=== PATIENT | female | born 1990 | race Caucasian/White ===

== ENCOUNTER 2024-02-23 05:18 | Inpatient (IN) ==
--- NOTE | 2024-02-06 11:11 | Anesthesiology Consultation ---
Date of Service February 06, 2024 Assessment & Plan (1) Encounter for pre-operative examination: Infectious disease screening: Per assessment on 02/06/24- No known recent infectious disease contacts or current infectious disease symptoms. Chart Review Chart Review: entry level recruiter initiated History Surgery Operation Date: 02/23/24 07:30 Proposed Procedures p Section in LD (Delivery of Baby Through Abdominal Incision) - Antonella Isaac, Height/Weight Height: 5 ft Weight: 77.111 kg Allergies Allergy/AdvReac Type Severity Reaction Status Date / Time No Known Allergies Allergy Verified 02/06/24 10:34 Medications Home Medications Medication Instructions Recorded Confirmed Last Taken Adrenal Complex 2 tab PO DAILY 02/06/24 02/06/24 Unknown Hcl V - Plus 1 tab PO DAILY 02/06/24 02/06/24 Unknown Para-Pack 2 tab PO DAILY 02/06/24 02/06/24 Unknown calcium 100 mg capsule 200 - 400 mg PO HS 02/06/24 02/06/24 Unknown vit no.133-ferrous 1 tab PO DAILY 02/06/24 02/06/24 Unknown fumarate 28 mg-folic acid 800 mcg tablet () Past Medical History Medical History Hypothyroid Past Family History Family History Mother Hypertension Grandmother (Maternal) Breast cancer, Onset Age: 42 Grandfather (Paternal) Hypertension Brother Thyroid disorder Denies family history of Ovarian cancer Colorectal cancer Past Surgical History Surgical History History of imperforate hymen Surgically opened S/P section Social History Smoking Status: Never smoker Do You Dip or Chew Tobacco: No Hx Alcohol Use: No Hx Substance Use: No substance use type: does not use Lab Results Anesthesia Preop Results Results Anesthesia Widget: Hgb 11.2 g/dl (12.0-16.0) L 12/30/23 Hct 33.5 % (37.0-47.0) L 12/30/23 TSH 1.145 uIu/ml (0.300-4.500) 12/30/23 Urine Color Yellow 12/15/23 Urine Appearance Clear (Clear) 12/15/23 Urine pH 7.5 (4.5-7.5) 12/15/23 Urine Specific [place] 1.003 (1.000-1.030) 12/15/23 Urine Protein Negative (Negative) 12/15/23 Urine Glucose (UA) Negative (Negative) 12/15/23 Urine Ketones Negative (Negative) 12/15/23 Urine Blood Negative (Negative) 12/15/23 Urine Nitrite Negative (Negative) 12/15/23 Urine Bilirubin Negative (Negative) 12/15/23 Urine Urobilinogen Negative (Negative) 12/15/23 Urine Leukocyte Esterase 2+ (Negative) H 12/15/23 Urine WBC (Auto) 0-5 /hpf (0-5) 12/15/23 Urine RBC (Auto) 0-2 /hpf (0-2) 12/15/23 Urine Hyaline Casts (Auto) 0-2 /lpf (0-2) 12/15/23 Urine Epithelial Cells (Auto) 6-10 /hpf (0-2) H 12/15/23 Urine Bacteria (Auto) None Seen (None Seen) 12/15/23 Testing Laboratory Results Urine culture (12/15/23): probable skin vipin
--- NOTE | 2024-02-20 11:46 | History & Physical Report ---
Date of Service February 20, 2024 Assessment & Plan (1) Previous delivery affecting : Plan: Plan for repeat section, reviewed consent in detail. Questions answered. History of Present Illness Chief Complaint: repeat CS Primary Care Provider: Margi Reddy MD 33yo with EDC 02/28/24, planned repeat section. and Delivery Plans *Previous - Low vertical on old record, await op report - Need op report - LTCS on op report - p9 of transferred records *plans for rpt C/S SCHEDULED FOR 02/23/[address] SILVA Thyroid dysfunction - w/ pcp *Check TFTs Q4wks Allergies Allergy/AdvReac Type Severity Reaction Status Date / Time No Known Allergies Allergy Verified 02/20/24 11:06 Home Medications Medication Instructions Recorded Confirmed Type Adrenal Complex 2 tab PO DAILY 02/06/24 02/20/24 History Hcl V - Plus 1 tab PO DAILY 02/06/24 02/20/24 History Para-Pack 2 tab PO DAILY 02/06/24 02/20/24 History calcium 100 mg capsule 200 - 400 mg PO HS 02/06/24 02/20/24 History vit no.133-ferrous 1 tab PO DAILY 02/06/24 02/20/24 History fumarate 28 mg-folic acid 800 mcg tablet () Patient History Medical History Hypothyroid Surgical History History of imperforate hymen Surgically opened S/P section Family History Mother Hypertension Grandmother (Maternal) Breast cancer, Onset Age: 42 Grandfather (Paternal) Hypertension Brother Thyroid disorder Denies family history of Ovarian cancer Colorectal cancer Social History (Updated 08/12/23 @ 10:02 by Ingris Jones RN) Smoking Status: Never smoker Do You Dip or Chew Tobacco: No; Hx Alcohol Use: No Hx Substance Use: No Preferred Language: Polish Communication Ability: Effective [place] Roofer Required: No Beliefs That Will Affect Care: None marital status: marital status details: Rivas Alhaji (32) [phone] Current Living Situation: Spouse and Family Current Living Situation Comment: Lives with spouse and son, No pets current occupational status: unemployed current occupation: Homemaker How many Children do You have: 1 Feels Safe at Home: Yes Assistive Devices: Contacts and Glasses Review of Systems All systems reviewed & are unremarkable except as noted in HPI & below Physical Exam Constitutional: WD/WN, vitals as above Respiratory: normal respiratory effort, lungs clear to auscultation no respiratory distress Cardiovascular: Rate/Rhythm: regular rate and regular rhythm Gastrointestinal (Abdomen): Inspection/Auscultation: abdomen normal to inspection Percussion/Palpation: abdomen soft; abdomen nontender Gravid. No s/s chorio or abruption. Skin: no rashes, warm and dry Psychiatric: A+Ox3, euthymic affect Coding Level of Care Code None Diagnoses Previous delivery affecting O34.219
[2024-02-23] MEDS: SODIUM CHLORIDE 0.9% 1,000 ML IV SCH ×3 (05:45→09:30)
[2024-02-23 06:18] LABS: Hemoglobin 11.3 g/dl (12.0-16.0); Mean Corpuscular Hemoglobin 30.8 pg (25.0-34.0); Mean Corpuscular Hgb Conc 34.2 g/dL (32.0-36.0); Mean Corpuscular Volume 89.9 fL (80.0-100.0); Mean Platelet Volume 12.5 fL (9.4-12.4); Platelet Count 171 K/uL (130-400); RDW Coefficient of Variation 14.1 % (11.5-14.5); RDW Standard Deviation 45.6 fL (36.4-46.3); Red Blood Count 3.67 M/uL (4.20-5.40); White Blood Count 9.05 K/ul (4.8-10.8)
[2024-02-23] MEDS: ACETAMINOPHEN 500 MG TAB PO SCH (06:20)
[2024-02-23] MEDS ORDERED: MoRPHine SULFATE PF 1 MG/ML 10 ML AMP/VIAL ONE (06:30)
[2024-02-23] MEDS ORDERED: fentaNYL citrate PF 100 MCG/2 ML VIAL ONE (06:30)
--- NOTE | 2024-02-23 07:03 | History & Physical Bridge Note ---
Date of Service February 23, 2024 History & Physical Bridge Note I have examined the patient, reviewed the History & Physical and in the interval since the performance of the History & Physical I have noted the following changes of clinical significance: no changes noted
[2024-02-23] MEDS: CITRIC ACID/SODIUM CITRATE 15 ML UDC PO SCH (07:06)
[2024-02-23] MEDS: ceFAZolin 2000MG 2,000 MG/15 ML SYR IV SCH (07:26)
[2024-02-23] MEDS ORDERED: ONDANSETRON INJ 2 MG/ML 2 ML VIAL ONE (07:54)
[2024-02-23] MEDS ORDERED: diphenhydrAMINE 50 MG/ML VIAL IV PRN (08:04)
[2024-02-23] MEDS ORDERED: ONDANSETRON INJ 2 MG/ML 2 ML VIAL IV PRN (08:04)
[2024-02-23] MEDS ORDERED: NALOXONE HCL 1 MG in SODIUM CHLORIDE 0.9% 1,000 ML IV PRN (08:04)
[2024-02-23] MEDS ORDERED: NALOXONE HCL 0.08 MG in SYRINGE 1.8 ML IV PRN (08:04)
[2024-02-23] MEDS ORDERED: NALOXONE HCL 0.4 MG/1 ML VIAL/CARP IV PRN (08:04)
[2024-02-23] MEDS ORDERED: ePHEDrine sulfate 50 MG/ML AMP IV PRN (08:04)
[2024-02-23] MEDS ORDERED: diphenhydrAMINE 50 MG/ML VIAL ONE (08:13)
[2024-02-23] MEDS ORDERED: DC INTRASPINAL MORPHINE SCH (08:15)
[2024-02-23] MEDS ORDERED: NO NARCOTICS OR SEDATIVES SCH (08:15)
--- NOTE | 2024-02-23 08:48 | Operative Report ---
Post Operative Report Pre & Post Diagnosis Operation Date: 02/23/24 07:30 Pre-Op Diagnosis: 1. Hx of x1 Post-Op Diagnosis: 1. Hx of x1 2. Delivery of Live male child at 0757 I identified the patient and participated in the time-out.: Yes Procedure Operation Date: 02/23/24 07:30 Actual Procedures p Repeat Low Transverse Section, Delivery of Live male child at 0757 - Antonella Isaac DO Surgeon Antonella Isaac DO Fashion Stylist Dr Kelsey Rios Quantitative Blood Loss (QBL) 196 Findings Consistent with Post-Op Diagnosis Viable male Apgars 8/9, weight pending please see nursery records. Specimens placenta, cord blood, cord gas Drains aranda clear yellow Anesthesia Type Spinal Complications none Disposition Accompanied Patient To Recovery: No Disposition: L&D Indications 33yo @ 39 03/26, here for scheduled repeat section. Description of Procedure The patient was seen in her labor and delivery room, risks benefits and alternatives to surgery were reviewed. Informed consent obtained. Questions we re answered. She was taken to the operating room, spinal anesthesia was administered. She was then prepared and draped in the usual sterile fashion in the supine position with a leftward tilt. Timeout was confirmed. A Pfannenstiel skin incision was made with a scalpel, and carried through to the underlying layer of fascia. Fascia was nicked at midline, and this incision was extended bilaterally. The superior aspect of the fascial incision was grasped with Audra clamps x2, elevated off the underlying rectus abdominis muscles, and dissected sharply and bluntly. In similar fashion, the inferior aspect of the fascial incision was dissected. The rectus abdominis muscles were , and the peritoneum was entered bluntly digitally. This was extended bilaterally. The bladder flap was taken down carefully using Metzenbaum scissors. Using a new scalpel, a low transverse uterine incision was created. Clear amniotic fluid noted. The infant was delivered from a cephalic presentation. The head delivered, followed by shoulders and body. Spontaneous cry on the field. The cord was doubly clamped and cut, and the was handed off to the waiting florist designer. A segment was retained for cord gases. Cord blood was obtained. The placenta was delivered spontaneously intact. The uterus was exteriorized, and cleared of all clots and debris. The hysterotomy incision was reapproximated using 0 Vicryl in a running locked stitch. A second layer of the same suture was used to imbricate the incision. Posterior uterus was evaluated and normal. The uterus was returned to the abdomen, and gutters were cleared of clots and debris. Excellent hemostasis was observed. The fascial incision was reapproximated using 0 Vicryl in a running stitch. The subcutaneous tissue was irrigated, and reapproximated using 2-0 plain gut in a running stitch. The skin was reapproximated using 4-0 Vicryl in a running subcuticular stitch. Steri-Strips and a bandage were applied. The patient tolerated the procedure well, and will be taken to the recovery area in stable and good condition. I attest to the content of the Intraoperative Record and any orders documented therein. Any exceptions are noted below. OB Procedure Charges 63208
[2024-02-23 08:52] LABS: Base Excess Cord Arterial Bld -3.6 mEq/L (-9-1.8); Base Excess Cord Venous Blood -0.5 mEq/L (-7.7-1.9); CO2 Cord Arterial Blood 55 mmHg (39.1-73.5); Cord Venous Blood HCO3 25 mmol/L (18.4-26.8); Cord Venous Blood PCO2 45 mmHg (30.4-57.2); Cord Venous Blood PO2 27 mmHg (14.1-43.3); Cord Venous Blood pH 7.36 (7.20-7.44); HCO3 Cord Arterial Blood 25 mmol/L (19.7-28.5); O2 Saturation Cord Venous Bld < 60.0 % (<68); Oxygen Sat Cord Arterial Blood < 60.0 % (<60); PO2 Cord Arterial Blood 20 mmHg (4.1-31.7); pH Cord Arterial Blood 7.26 (7.1-7.38)
[2024-02-23] MEDS ORDERED: SENNA 8.6 MG TAB PO PRN (09:01)
[2024-02-23] MEDS ORDERED: BENZOCAINE 20% SPRY 85 APPLN/85 GM CAN EXT PRN (09:01)
[2024-02-23] MEDS ORDERED: HYDROCORTISONE ACETATE 25 MG SUPP PR PRN (09:01)
[2024-02-23] MEDS ORDERED: CALCIUM CARBONATE 500 MG CHEWABLE TAB PO PRN (09:01)
[2024-02-23] MEDS ORDERED: MAGNESIUM HYDROXIDE SUSP 30 ML UDC PO PRN (09:01)
[2024-02-23] MEDS: KETOROLAC 30 MG/ML VIAL ONE (09:05)
[2024-02-23] MEDS: MoRPHine SULFATE PF 1 MG/ML 10 ML AMP/VIAL INT SPINAL ONE (09:19)
[2024-02-23] MEDS: NALBUPHINE HCL INJ 10 MG/ML AMP IV PRN (09:22)
[2024-02-23] MEDS: DIPHTHER/TETAN/PERTUS Vaccine (Tdap, Adol/Adult) 0.5mL IM ONE (09:28)
[2024-02-23] MEDS: KETOROLAC 30 MG/ML VIAL IV SCH (09:28)
[2024-02-23] MEDS: OXYTOCIN 20 UNITS/LR 1,002 ML IV SCH (09:29)
[2024-02-23] MEDS: HYDROmorphone INJ 0.5 MG/0.5 ML SYR IV PRN (10:53)
[2024-02-23] MEDS: HYDROmorphone INJ 0.5 MG/0.5 ML SYR IV STA (12:11)
--- NOTE | 2024-02-23 13:26 | Anesthesiology Progress Note ---
Date of Service February 23, 2024 Anesthesia Post Procedure Vital Signs Vital Signs: Temp Pulse Pulse Resp BP BP Pulse Ox 02/23/24 11:45 18 97 02/23/24 11:45 36.7 C 80 18 123/78 97 02/23/24 11:17 82 96 02/23/24 11:12 76 96 02/23/24 11:07 73 96 02/23/24 11:04 76 115/54 L 02/23/24 11:02 73 96 02/23/24 11:01 74 92 02/23/24 10:57 83 96 02/23/24 10:53 83 94 02/23/24 10:52 85 96 02/23/24 10:47 83 96 02/23/24 10:45 18 02/23/24 10:43 86 108/59 L 02/23/24 10:42 83 96 02/23/24 10:37 79 97 02/23/24 10:33 85 124/68 02/23/24 10:32 88 97 02/23/24 10:27 82 97 02/23/24 10:23 74 112/68 02/23/24 10:22 77 97 02/23/24 10:17 83 96 02/23/24 10:15 16 02/23/24 10:13 82 118/68 02/23/24 10:12 82 97 02/23/24 10:07 83 96 02/23/24 10:03 73 118/60 02/23/24 10:02 80 96 02/23/24 09:57 82 96 02/23/24 09:53 85 121/63 02/23/24 09:52 84 96 02/23/24 09:47 86 97 02/23/24 09:45 37.1 C 18 02/23/24 09:44 80 120/65 02/23/24 09:42 82 96 02/23/24 09:37 82 95 02/23/24 09:35 18 02/23/24 09:34 85 145/70 H 02/23/24 09:32 79 96 02/23/24 09:27 84 96 02/23/24 09:25 18 02/23/24 09:24 82 145/68 H 02/23/24 09:22 80 96 02/23/24 09:17 79 96 02/23/24 09:15 20 02/23/24 09:15 85 94 02/23/24 09:14 91 H 118/74 02/23/24 09:12 85 96 02/23/24 09:07 79 96 02/23/24 09:05 18 02/23/24 09:03 87 117/70 02/23/24 09:02 96 H 97 02/23/24 08:57 93 H 95 02/23/24 08:55 16 02/23/24 08:55 97 H 119/63 02/23/24 08:52 96 H 99 02/23/24 08:47 96 H 100 02/23/24 08:46 86 90 02/23/24 08:45 36.7 C 18 02/23/24 08:42 90 114/71 98 02/23/24 07:03 20 02/23/24 07:03 36.9 C 20 02/23/24 07:02 83 110/73 02/23/24 05:56 37.1 C 18 02/23/24 05:50 18 02/23/24 05:50 37.1 C 18 02/23/24 05:43 93 H 119/74 O2 Del Method 02/23/24 11:45 02/23/24 11:45 Room Air 02/23/24 11:17 02/23/24 11:12 02/23/24 11:07 02/23/24 11:04 02/23/24 11:02 02/23/24 11:01 02/23/24 10:57 02/23/24 10:53 02/23/24 10:52 02/23/24 10:47 02/23/24 10:45 02/23/24 10:43 02/23/24 10:42 02/23/24 10:37 02/23/24 10:33 02/23/24 10:32 02/23/24 10:27 02/23/24 10:23 02/23/24 10:22 02/23/24 10:17 02/23/24 10:15 02/23/24 10:13 02/23/24 10:12 02/23/24 10:07 02/23/24 10:03 02/23/24 10:02 02/23/24 09:57 02/23/24 09:53 02/23/24 09:52 02/23/24 09:47 02/23/24 09:45 02/23/24 09:44 02/23/24 09:42 02/23/24 09:37 02/23/24 09:35 02/23/24 09:34 02/23/24 09:32 02/23/24 09:27 02/23/24 09:25 02/23/24 09:24 02/23/24 09:22 02/23/24 09:17 02/23/24 09:15 02/23/24 09:15 02/23/24 09:14 02/23/24 09:12 02/23/24 09:07 02/23/24 09:05 02/23/24 09:03 02/23/24 09:02 02/23/24 08:57 02/23/24 08:55 02/23/24 08:55 02/23/24 08:52 02/23/24 08:47 02/23/24 08:46 02/23/24 08:45 02/23/24 08:42 02/23/24 07:03 02/23/24 07:03 02/23/24 07:02 02/23/24 05:56 02/23/24 05:50 02/23/24 05:50 02/23/24 05:43 Pain Intensity Abdomen: Pain Intensity: 8 Notes Mental Status: alert / awake / arousable Patient Amnestic to Procedure: Yes Nausea / Vomiting: adequately controlled Pain: adequately controlled Airway Patency, RR, SpO2: stable & adequate BP & HR: stable & adequate Hydration State: stable & adequate Neuraxial Anesthesia: was administered and sensory block is resolving Anesthetic Complications: no major complications apparent
[2024-02-23] MEDS: ACETAMINOPHEN 325 MG TAB PO SCH (14:48)
[2024-02-23] MEDS: SIMETHICONE 80 MG CHEW PO SCH (14:48)
[2024-02-23] MEDS: DOCUSATE SODIUM 100 MG CAP PO SCH (21:05)
[2024-02-24] MEDS ORDERED: oxyCODONE HCL IR 5 MG TAB (IMMEDIATE RELEASE) PO PRN (02:05)
[2024-02-24] MEDS ORDERED: ONDANSETRON INJ 2 MG/ML 2 ML VIAL IV PRN (02:05)
[2024-02-24] MEDS ORDERED: diphenhydrAMINE 50 MG/ML VIAL IV PRN (02:05)
[2024-02-24] MEDS ORDERED: HYDROmorphone INJ 0.5 MG/0.5 ML SYR IV PRN (02:05)
[2024-02-24] MEDS ORDERED: PROMETHAZINE 12.5 MG/50.5 ML BAG IV PRN (02:05)
[2024-02-24] MEDS ORDERED: diphenhydrAMINE Capsule 25 MG CAP PO PRN (02:05)
[2024-02-24 06:20] LABS: Basophils # (auto) 0.02 K/uL (0.00-0.20); Basophils % (auto) 0.2 %; Eosinophils # (auto) 0.05 K/uL (0.00-0.50); Eosinophils % (auto) 0.6 %; Hematocrit (blood only) 28.1 % (37.0-47.0); Hemoglobin 9.5 g/dl (12.0-16.0); Immature Granulocytes # (auto) 0.04 K/uL (0.01-0.20); Immature Granulocytes % (auto) 0.5 %; Lymphocytes # (auto) 1.32 K/uL (1.20-3.40); Lymphocytes % (auto) 15.6 %; Mean Corpuscular Hemoglobin 30.7 pg (25.0-34.0); Mean Corpuscular Hgb Conc 33.8 g/dL (32.0-36.0); Mean Corpuscular Volume 90.9 fL (80.0-100.0); Monocytes # (auto) 0.64 K/uL (0.11-0.59); Monocytes % (auto) 7.6 %; Neutrophils # (auto) 6.37 K/uL (1.40-6.50); Neutrophils % (auto) 75.5 %; Platelet Count 142 K/uL (130-400); RDW Coefficient of Variation 14.6 % (11.5-14.5); RDW Standard Deviation 47.7 fL (36.4-46.3); Red Blood Count 3.09 M/uL (4.20-5.40); White Blood Count 8.44 K/ul (4.8-10.8)
--- NOTE | 2024-02-24 06:59 | Obstetrical Progress Note ---
Date of Service February 24, 2024 Assessment & Plan (1) delivery delivered: Plan Plan: 33 Y O L1 at 39+2 week POG. 1 POD following Delivery Both mom and baby doing well. Continue care as per protocol. Encouraged nursing with mother's milk. Encouraged ambulation. Encouraged deep breathing. Admission and Anticipated Discharge Date Admission Date: February 23, 2024 Supervising Physician Co-Signing Physician Notes Resident Physician Supervision Note: I interviewed and examined the patient. Discussed with Dr. Simon and agree with findings and plan as documented in the note. Any exceptions or clarifications are listed here: POD#1 doing well. Incision CDI. Routine postop care. Documented By: Antonella Isaac, DO Subjective 33 years L1 at 39+2 week POG. 1 POD following delivery No active complains Both mom and baby doing well. Mom Lying comfortable on bed. Pain: Mild, intermittent, manageable on painkillers. Lochia: Moderate Diet: Regular OB diet Gas: Not aware of passing, but no abdominal distension Peeing: Passed Urine after Rooney's removal Ambulation: to Bathroom/ Corridor without any complication Answered her queries. Review of Systems Review of Systems: As Per HPI Physical Exam Physical Exam: General: Alert and oriented. No acute distress. CVS: S1 S2+ No murmurs, regular rhythm. Respiratory: CTA bilaterally. No rhonchi, wheezes, or crackles. No increased work of breathing. Abdomen: Bowel sound +. Soft, nontender Uterus: Fundus firm and palpable few cm below the umbilicus. Incision site looks healthy: Dry, No swelling, Erythema Lower extremities: No LE edema. No deep calf pain. Results & Data Vital Signs (Past 12 Hours) Vital Signs Temp Pulse Resp BP Pulse Ox O2 Del Method 02/24/24 03:00 36.8 C 89 18 108/69 96 Room Air 02/24/24 02:00 18 94 02/24/24 01:00 18 94 02/24/24 00:00 18 96 02/23/24 23:35 36.5 C 76 18 99/63 L 97 Room Air 02/23/24 23:00 18 95 02/23/24 21:34 18 97 02/23/24 21:30 18 97 02/23/24 20:35 36.9 C 80 18 121/77 97 Room Air 02/23/24 20:30 18 98 02/23/24 19:30 18 97
[2024-02-24] MEDS ORDERED: KETOROLAC 30 MG/ML VIAL IV PRN (08:41)
[2024-02-24] MEDS: IBUPROFEN 600 MG TAB PO SCH (08:44)
[2024-02-24] MEDS: FERROUS SULFATE 325 MG TAB PO SCH (08:44)
[2024-02-24] MEDS: PRENATAL VITAMIN 1 TAB PO SCH (08:44)
[2024-02-24] MEDS: bisacodyL 5 MG TABEC PO SCH (20:51)
[2024-02-24 21:04] VITALS: RESP 18
[2024-02-25 00:08] VITALS: TEMP 98.1
[2024-02-25 06:58] LABS: Hematocrit (blood only) 28.1 % (37.0-47.0); Hemoglobin 9.4 g/dl (12.0-16.0)
[2024-02-25 07:01] VITALS: BP 110/75; PULSE 85; O2SAT 96
--- NOTE | 2024-02-25 07:43 | Obstetrical Progress Note ---
Date of Service February 25, 2024 Assessment & Plan (1) delivery delivered: Plan Plan: 33 Y O L1 at 39+2 week POG. #2 POD following Delivery Both mom and baby doing well. Continue care as per protocol. Encouraged nursing with mother's milk. Encouraged ambulation. Encouraged deep breathing. Patient feels ready to go home today. Will discharge today. Follow up with Dr Isaac after 6 weeks Admission and Anticipated Discharge Date Admission Date: February 23, 2024 Supervising Physician Co-Signing Physician Notes Resident Physician Supervision Note: I was present with Dr. Simon during the history and exam. I discussed the case with the resident and agree with the findings and plan as documented in the note. Any exceptions or clarifications are listed here: [None] Documented By: Ronnie Duncan MD, FACOG Subjective 33 years L1 at 39+2 week POG. #2 POD following delivery No active complains Both mom and baby doing well. Mom Lying comfortable on bed. Pain: Mild, intermittent, manageable on painkillers. Lochia: Minimal Diet: Regular OB diet BM: no Bowel Movement after surgery Gas: Passing, no abdominal distension Peeing: Passed Urine after Rooney's removal Ambulation: to Bathroom/ Corridor without any complication Answered her queries. Review of Systems Review of Systems: As per HPI Physical Exam Physical Exam: General: Alert and oriented. No acute distress. CVS: S1 S2+ No murmurs, regular rhythm. Respiratory: CTA bilaterally. No rhonchi, wheezes, or crackles. No increased work of breathing. Abdomen: Bowel sound +. Soft, nontender Uterus: Fundus firm and palpable few cm below the umbilicus. Incision site looks healthy: Dry, No swelling, Erythema Lower extremities: No LE edema. No deep calf pain. Results & Data Vital Signs (Past 12 Hours) Vital Signs Temp Pulse Resp BP Pulse Ox O2 Del Method 02/25/24 07:00 36.7 C 85 18 110/75 96 Room Air 02/24/24 23:40 36.7 C 80 18 116/76 98 Room Air 02/24/24 20:05 37.1 C 91 H 18 126/78 98 Room Air
[2024-02-25] MEDS: IBUPROFEN 600 MG TAB PO PRN (08:13)
[2024-02-25] MEDS ORDERED: bisacodyL 10 MG SUPP PR PRN (08:41)
[2024-02-25] MEDS ORDERED: ACETAMINOPHEN 325 MG TAB PO PRN (14:41)
== END 2024-02-25 16:30 | disposition home or self-care (01) | DRG 788 ==
LOC: 4S1 05:18 → EDSTATUS 07:30 → 4E2 11:39